=== PATIENT | male | born 1990 | race Two or more races ===

== ENCOUNTER 2018-09-22 08:29 | Emergency (ER) | payer OTHER ==
[~2018-09-22] VITALS: Ht 175.3 cm; Wt 94.3 kg
[2018-09-22 08:42] VITALS: BP 128/72
[2018-09-22] MEDS ORDERED: NAPR500T8 PO (09:38)
[2018-09-22] MEDS ORDERED: KETOROLAC 60 MG/2 ML VIAL. IM ONE ×2 (09:38→10:00)
[2018-09-22] MEDS ORDERED: METH-37 PO (09:38)
[2018-09-22] MEDS ORDERED: ORPHENADRINE CITRATE 60 MG/2 ML VIAL. ONE (09:38)
--- NOTE | 2018-09-22 09:39 | PHYS DOC ---
Past History Past Medical History: No Pertinent History Past Surgical History: No Surgical History Alcohol Use: Rarely Drug Use: None Adult General Chief Complaint Chief Complaint: BACK PAIN OR INJURY [facility] 28-year-old healthy male in the [employer] presents with left-sided low back pain after working out this morning. He states he felt his back go out while he was doing a dumbbell workout on the inclined bench. He denies any radicular symptoms. He denies any saddle paresthesia. He denies any bowel or bladder dysfunction.[] Review of Systems Review of Systems Constitutional: Denies fever or chills [] Eyes: Denies change in visual acuity, redness, or eye pain [] HENT: Denies nasal congestion or sore throat [] Respiratory: Denies cough or shortness of breath [] Cardiovascular: No additional information not addressed in HPI [] GI: Denies abdominal pain, nausea, vomiting, bloody stools or diarrhea [] : Denies dysuria or hematuria [] Musculoskeletal: Per history of present illness[] Integument: Denies rash or skin lesions [] Neurologic: Denies headache, focal weakness or sensory changes [] All other systems were reviewed and found to be within normal limits, except as documented in this note. Allergies Allergies Allergies Coded Allergies Type Severity Reaction Last Updated Verified No Known Drug Allergies 09/22/18 No Physical Exam Physical Exam Constitutional: Well developed, well nourished, moderate distress, non-toxic appearance. [] Cardiovascular:Heart rate regular rhythm, no murmur [] Lungs & Thorax: Bilateral breath sounds clear to auscultation [] Abdomen: Bowel sounds normal, soft, no tenderness, no masses, no pulsatile masses. [] Skin: Warm, dry, no erythema, no rash. [] Back: Lumbar paraspinal muscle spasm no midline tenderness negative straight leg raise. [] Extremities: No tenderness, no cyanosis, no clubbing, ROM intact, no edema. [] Neurologic: Alert and oriented X 3, normal motor function, normal sensory function, no focal deficits noted, patellar reflexes intact. [] Psychologic: Anxious[] Current Patient Data Vital Signs Vital Signs Date Time Temp Pulse Resp B/P (MAP) Pulse Ox O2 Delivery O2 Flow Rate FiO2 09/22/18 08:42 74 18 96 Room Air EKG EKG [] Radiology/Procedures Radiology/Procedures [] Course & Med Decision Making Course & Med Decision Making Pertinent Labs and Imaging studies reviewed. (See chart for details) [] Dragon Disclaimer Dragon Disclaimer This electronic medical record was generated, in whole or in part, using a voice recognition dictation system. Departure Departure: Impression: Primary Impression: Acute low back pain without sciatica Disposition: HOME, SELF-CARE Condition: STABLE Referrals: RADU DAVIS (PCP) Patient Instructions: Back Pain, Adult Additional Instructions: Return to the emergency department with any new or concerning symptoms Scripts Methocarbamol (ROBAXIN) 500 Mg Tablet 1 TAB PO TID for back pain, #30 TAB Prov: ANAMARIA EDMOND DO 09/22/18 Naproxen (NAPROXEN) 500 Mg Tablet.dr 1 TAB PO Q12HR PRN for PAIN, #60 TAB 1 Refill Prov: ANAMARIA EDMOND DO 09/22/18 Problem Qualifiers Primary Impression: Acute low back pain without sciatica Back pain laterality: left Qualified Codes: M54.5 - Low back pain ANAMARIA EDMOND DO Sep 22, 2018 09:39
[2018-09-22] MEDS ORDERED: ORPHENADRINE CITRATE 60 MG/2 ML VIAL. IM ONE (10:00)
== END 2018-09-22 09:53 | disposition home or self-care (01) ==
LOC: ER 08:29
DX: M54.5 Low back pain (principal)
CPT/HCPCS: 99283